=== PATIENT | male | born 1960 | race Caucasian/White ===

== ENCOUNTER 2018-11-07 07:20 | Outpatient (CLI) | payer OTHER ==
[2018-11-07 13:30] LABS: BASOPHILS # (AUTO) 0.1 10^3/uL (0.0-0.1); BASOPHILS % (AUTO) 0.9 %; EOSINOPHILS # (AUTO) 0.1 10^3/uL (0.0-0.7); EOSINOPHILS % (AUTO) 1.1 %; HGB - HEMOGLOBIN 14.8 g/dL (14.0-18.0); LYMPHOCYTES # (AUTO) 1.8 10^3/uL (1.5-3.5); LYMPHOCYTES % (AUTO) 28.7 %; MEAN CORPUSCULAR HEMOGLOBIN 32.3 pg (27.0-31.0); MEAN CORPUSCULAR HGB CONC 34.2 g/dL (32.0-36.0); MEAN CORPUSCULAR VOLUME 94.4 fL (80.0-94.0); MEAN PLATELET VOLUME 7.9 fL (7.4-11.4); MONOCYTES # (AUTO) 0.4 10^3/uL (0.0-1.0); MONOCYTES % (AUTO) 6.4 %; NEUTROPHILS # (AUTO) 3.9 10^3/uL (1.5-6.6); NEUTROPHILS % (AUTO) 62.9 %; PLT - PLATELET COUNT 279 10^3/uL (130-450); RED BLOOD COUNT 4.58 10^6/uL (4.70-6.10); RED CELL DISTRIBUTION WIDTH 13.7 % (12.0-15.0); WHITE BLOOD COUNT 6.2 x10^3/uL (4.8-10.8)
[2018-11-07 15:59] LABS: ALBUMIN 4.4 g/dL (3.2-5.5); ALBUMIN/GLOBULIN RATIO 1.5 (1.0-2.2); ALKALINE PHOSPHATASE 65 IU/L (42-121); ALT ALANINE AMINOTRANSFERASE 22 IU/L (10-60); AST ASPARTATE AMINOTRANSFERASE 19 IU/L (10-42); BILIRUBIN,TOTAL 0.6 mg/dL (0.2-1.0); BUN - BLOOD UREA NITROGEN 15 mg/dL (6-20); CALCIUM 9.1 mg/dL (8.5-10.3); CARBON DIOXIDE - CO2 23 mmol/L (21-32); CHLORIDE 104 mmol/L (101-111); CHOL/HDL RATIO 5.9 (<5.0); CHOLESTEROL 249 mg/dL; CREATININE 0.7 mg/dL (0.6-1.2); GFR - MDRD 116 (>89); GLUCOSE 102 mg/dL (70-100); HDL CHOLESTEROL 42 mg/dL; LDL CHOLESTEROL,CALCULATED 176 mg/dL; LDL/HDL RATIO 4.2 (<3.6); SODIUM 136 mmol/L (135-145); TOTAL PROTEIN 7.3 g/dL (6.7-8.2); VLDL CHOLESTEROL 31 mg/dL
[2018-11-07 17:46] LABS: HB2 TOTAL 15.7 g/dL; HEMOGLOBIN A1C 0.59 g/dL; HEMOGLOBIN A1C % 5.6 % (4.6-6.2)
[2018-11-08 13:42] LABS: HEPATITIS C ANTIBODY NON-REACTIVE (NON-REACTIVE)
[2018-11-08 14:36] LABS: HIV AG/AB 4TH GEN NON-REACTIVE (NON-REACTIVE)
[2018-11-09 13:21] LABS: HSV 2 IGG TYPE SPECIFIC AB <0.90 index
== END 2018-11-07 07:21 | disposition home or self-care (01) ==
LOC: LAB.WCP 07:20
PROVIDERS: ATTEND Family Medicine
DX: Z00.00 Encounter for general adult medical examination without abnormal findings (principal); E78.5 Hyperlipidemia, unspecified; Z12.5 Encounter for screening for malignant neoplasm of prostate; F41.9 Anxiety disorder, unspecified; F32.9 Major depressive disorder, single episode, unspecified; Z11.3 Encounter for screening for infections with a predominantly sexual mode of transmission
CPT/HCPCS: 36415; 80053; 80061; 81599; 83036; 83721; 84153; 84443; 85025; 86592; 86695; 86696; 86803; 87389; 87491; 87591

== ENCOUNTER 2018-12-01 15:09 | Outpatient (CLI) | payer OTHER ==
--- NOTE | 2018-12-01 16:15 | CT Report ---
Reason: SMOKER Procedure Date: 12/01/2018 Accession Number: [id number] / [id number] Procedure: CT - Low Dose Lung Cancer Screen CPT Code: FULL RESULT: EXAM CT LUNG SCREEN EXAM DATE: 12/01/2018 03:35 PM. HISTORY: 58-year-old patient with [id number] smoking history. Currently smoking: Yes. Years since quitting: N/A. COMPARISON: None. TECHNIQUE: CT examination of the entire thorax without contrast was performed using low-dose technique. Thin section coronal, axial, sagittal and MIP axial images were obtained. In accordance with CT protocol optimization, one or more of the following dose reduction techniques were utilized for this exam: automated exposure control, adjustment of mA and/or KV based on patient size, or use of iterative reconstructive technique. FINDINGS: Lungs: Mild emphysema. No suspicious mass. Mild bilateral central peribronchial thickening. Benign linear scarring right middle lobe. Mild posterior left lower lobe parenchymal scarring. Pleura: Unremarkable. Aorta: Unremarkable. Mediastinum: Unremarkable. Coronary calcifications: None. Other pulmonary findings: None. Other extrapulmonary findings: None. IMPRESSION: Lung-RADS ASSESSMENT CATEGORY: 1 - negative Probability of malignancy: Low RECOMMENDATION: Recommend follow-up low-dose lung cancer screening in 1 year. [facility]
== END 2018-12-01 15:10 | disposition home or self-care (01) ==
LOC: DI 15:09
PROVIDERS: ATTEND Family Medicine
DX: Z12.2 Encounter for screening for malignant neoplasm of respiratory organs (principal); F17.210 Nicotine dependence, cigarettes, uncomplicated; J43.9 Emphysema, unspecified

== ENCOUNTER 2019-03-15 08:00 | Outpatient (CLI) | payer OTHER ==
[2019-03-15 19:18] LABS: ALBUMIN 4.3 g/dL (3.2-5.5); ALBUMIN/GLOBULIN RATIO 1.5 (1.0-2.2); ALKALINE PHOSPHATASE 67 IU/L (42-121); ALT ALANINE AMINOTRANSFERASE 24 IU/L (10-60); AST ASPARTATE AMINOTRANSFERASE 19 IU/L (10-42); BILIRUBIN,TOTAL 0.6 mg/dL (0.2-1.0); BUN - BLOOD UREA NITROGEN 19 mg/dL (6-20); CALCIUM 9.2 mg/dL (8.5-10.3); CARBON DIOXIDE - CO2 22 mmol/L (21-32); CHLORIDE 108 mmol/L (101-111); CHOL/HDL RATIO 5.4 (<5.0); CHOLESTEROL 194 mg/dL; GFR - MDRD 77 (>89); GLUCOSE 96 mg/dL (70-100); HDL CHOLESTEROL 36 mg/dL; LDL CHOLESTEROL,CALCULATED 100 mg/dL; LDL/HDL RATIO 2.8 (<3.6); SODIUM 139 mmol/L (135-145); TOTAL PROTEIN 7.2 g/dL (6.7-8.2); VLDL CHOLESTEROL 58 mg/dL
== END 2019-03-15 23:59 | disposition home or self-care (01) ==
LOC: LAB.WCP 08:00
PROVIDERS: ATTEND Family Medicine
DX: E78.5 Hyperlipidemia, unspecified (principal)
CPT/HCPCS: 36415; 80053; 80061; 83721